=== PATIENT | female | born 1940 | race Caucasian/White ===

== ENCOUNTER → 2020-07-16 | Outpatient (CLI) | payer MEDICARE, OTHER ==
[~2020-07-16] MED LIST: DICLOFENAC POTA50 MG PO; FUROSEMIDE40 MG PO; LEVAQUIN750 MG PO; LEVOTHYROXINE75 MCG PO; RESTORIL 30 MG30 MG PO
== END ==
LOC: HEART 5 14:54
DX: Z48.89 Encounter for other specified surgical aftercare (principal); J44.9 Chronic obstructive pulmonary disease, unspecified; M19.90 Unspecified osteoarthritis, unspecified site
CPT/HCPCS: 94060; 94729

== ENCOUNTER → 2020-07-30 | Outpatient (CLI) | payer MEDICARE, OTHER | LOC: KOH-I 12:35 | DX: R91.1 Solitary pulmonary nodule (principal) | CPT/HCPCS: 71250 ==